=== PATIENT | male | born 1990 | race Caucasian/White ===

== ENCOUNTER 2024-03-20 13:37 | Emergency (ER) | payer OTHER, BC, SELFPAY ==
--- NOTE | ~2024-03-20 | XR_ITS ---
EXAMINATION: XR lumbar spine 2-3V DATE: 03/20/2024 15:14 INDICATION: Low back injury. Low back pain. TECHNIQUE: 3 views of lumbar spine including standing views were obtained. COMPARISON: None. FINDINGS: There is 4 degrees dextrocurvature of lumbar spine. Vertebral body heights are normal. Ther e is mildly decreased disc height at L4-L5. There is multilevel mild facet joint osteoarthritis. IMPRESSION: 1. Mild lumbar spondylosis. Reviewed, dictated and finalized at location A. IMPRESSION: 1. Mild lumbar spondylosis.
[2024-03-20 14:13] VITALS: BP 140/77; PULSE 74; RESP 16; TEMP 36.6; O2SAT 100
--- NOTE | 2024-03-20 14:56 | ED.BACK ---
HPI - Back Pain/Injury General Chief Complaint: Back Pain/Injury Stated Complaint: back injury/work related Time Seen by Provider: 03/20/24 14:35 Source: patient, RN notes reviewed and old records reviewed Mode of arrival: ambulatory Limitations: no limitations History of Present Illness HPI Narrative: 34 year old male presents to [facility] care with lower lumbar back pain. 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 Patient reports that he leaned to left to try to stabilize pallets and felt sharp sudden pain to his lower back. Patient reports that pain across lower back does not radiate down legs or into his buttocks. Patient states that pain is 10/10 at times. He has been applying ice to his back and he has been taking Tylenol. Patient reports that pain increases when sitting to standing and with some movements.. MD elicited complaint: back pain and back injury (across lumbar back) Pertinent past history: other (injury at work yesterday 1030) Onset (ago): day(s) (yesterday at 1030) Pain scale (0-10): 7 Location: lumbar spine Radiation: none Exacerbating factors: other (sitting to standing and with some movements) Treatments prior to arrival: cold therapy and acetaminophen Work related injury: Yes Related Data Allergies Allergy/AdvReac Type Severity Reaction Status Date / Time No Known Allergies Allergy Mild Verified 03/20/24 14:30 Review of Systems Review of Systems: CONSTITUTIONAL: Denies fever, chills, or sweats. EYES: Denies visual changes, redness, or discharge. ENT: Denies rhinorrhea, congestion, sore throat, or otalgia. CARDIOVASCULAR: Denies chest pain, palpitations, or edema. RESPIRATORY: Denies cough or dyspnea. GASTROINTESTINAL: Denies abdominal pain, nausea, vomiting, or diarrhea. GENITOURINARY: Denies dysuria or hematuria. SKIN: Denies rash or itching. MUSCULOSKELETAL: Reports lower back pain, or myalgia.no radiation of pain to buttocks or to legs. NEUROLOGIC: Denies headache, numbness, or weakness. PSYCHIATRIC: Denies anxiety or depression. All systems reviewed & are unremarkable except as noted in HPI and below PMFSH Surgical History Surgical History (Updated 03/22/24 @ 11:34 by Ebony Mcclain NP) History of tonsillectomy and adenoidectomy Social History Social History (Updated 03/22/24 @ 11:33 by Ebony Mcclain NP) Smoking status: Current every day smoker Tobacco type: e-cigarettes/vaping Alcohol intake: current Alcohol use details: social Substance use type: does not use Living arrangements: with family Gender identity (if verbalized by the patient): Male Comments At time of signature, agree with nursing past medical, surgical, social and family history. There is no relevant family history pertinent to the presenting complaint Exam Narrative: GENERAL: Well-appearing, well-nourished, and in some acute distress. HEAD: Normocephalic, atraumatic EYES: PERRLA and EOMI. ENT: Nares clear, no rhinorrhea or epistaxis. Mucous membranes moist. NECK: Supple. no lymphadenopathy CHEST: Clear to auscultation. No respiratory distress. SAO2 100% on room air HEART: Regular rate and rhythm. No murmur heard. Normal peripheral pulses. ABDOMEN: Soft, nontender, nondistended, normal active bowel sounds. EXTREMITIES: Normal range of motion. No edema. Pain across lumbar back region with no radiation of pain to buttocks or to legs, denies any tingling or numbness to legs, denies any difficulty passing urine or stools, denies any saddle paraesthesia. Increased pain with moving from sitting to standing, moving side to side and bending. Noted tightness and spasms of muscles lower back. SKIN: Warm, dry, no rash. NEURO: No focal deficits. Alert and oriented x3. Course Course Emergency Course: Patient is aware of diagnosis, understands and agrees to treatment plan.? Anticipatory guidance given.?
== END 2024-03-20 15:52 | disposition home or self-care (01) ==
PROVIDERS: Emergency Provider Registered Nurse
DX: M54.50 Low back pain, unspecified (principal); F17.290 Nicotine dependence, other tobacco product, uncomplicated
CPT/HCPCS: 72100; 99203; G0463

== ENCOUNTER 2024-06-23 14:31 | Emergency (ER) | payer BC, SELFPAY ==
[2024-06-23 14:54] VITALS: BP 165/98; PULSE 79; RESP 16; TEMP 36.3; O2SAT 100
--- NOTE | 2024-06-23 15:01 | ED.EAR ---
HPI - Ear Problem General Chief complaint: Ear Stated complaint: Ear Pain Time Seen by Provider: 06/23/24 14:57 Source: patient and RN notes reviewed Mode of arrival: ambulatory Limitations: no limitations History of Present Illness HPI Narrative: Patient presents today complaining of right ear pain since this morning and mild sore throat since last night. Reports he has had a rupture in the right ear twice and wants to make sure he does not have an infection or rupture at this time. Denies cough, headache, fever, or recent illness. Currently rates his pain 8/10 and states the pain is intermittent. He has tried Tylenol and ibuprofen without relief. Related Data Home Medications ?Medication ?Instructions ?Recorded ?Confirmed ?Last Taken ?Type No Home Medications 06/23/24 06/23/24 Unknown History Allergies Allergy/AdvReac Type Severity Reaction Status Date / Time No Known Allergies Allergy Mild Verified 03/20/24 14:30 Review of Systems Review of Systems: CONSTITUTIONAL: Denies body aches, fever, chills, or sweats. EYES: Denies visual changes, redness, or discharge. ENT: Denies rhinorrhea, congestion. + right ear pain, sore throat CARDIOVASCULAR: Denies chest pain, palpitations, or edema. RESPIRATORY: Denies cough or dyspnea. GASTROINTESTINAL: Denies abdominal pain, nausea, vomiting, or diarrhea. GENITOURINARY: Denies dysuria or hematuria. SKIN: Denies rash, itching, or wounds. MUSCULOSKELETAL: Denies back pain, joint pain, or myalgia. NEUROLOGIC: Denies headache, numbness, tingling, or weakness. PSYCH: Denies depression or anxiety. [facility] Surgical History Surgical History History of tonsillectomy and adenoidectomy Social History Social History Smoking status: Current every day smoker Tobacco type: e-cigarettes/vaping Alcohol intake: current Alcohol use details: social Substance use type: does not use Living arrangements: with family Gender identity (if verbalized by the patient): Male Comments At time of signature, I have reviewed and agree with nursing past medical, surgical, social and family history unless otherwise noted. Please see nursing chart for further information. There is no relevant family history pertinent to the presenting complaint Exam Narrative: GENERAL: Well-appearing, well-nourished, and in no acute distress. HEAD: Normocephalic, atraumatic. EYES: EOMI. No redness or drainage. Conjunctivae normal. ENT: Mucous membranes pink and moist. Nares clear. No rhinorrhea. TMs normal bilaterally. Throat mildly erythematous without edema exudate. Uvula midline. NECK: Normal AROM. Supple. No lymphadenopathy. CHEST: No respiratory distress. EXTREMITIES: Normal range of motion. No edema. SKIN: Warm, dry, no rash. Capillary refill normal. Normal skin turgor. NEURO: No focal deficits. Alert and oriented x3. Gait steady. PSYCH: Normal affect. No signs of depression or anxiety. Course Course Level of Care: Express Care Visit Vital Signs Vital signs: Vital Signs Temperature 97.4 F L 06/23/24 14:54 Pulse Rate 79 06/23/24 14:54 Respiratory Rate 16 06/23/24 14:54 Blood Pressure 165/98 H 06/23/24 14:54 Pulse Oximetry 100 06/23/24 14:54 Temperature 97.4 F L 06/23/24 14:54 Pulse Rate 79 06/23/24 14:54 Respiratory Rate 16 06/23/24 14:54 Blood Pressure 165/98 H 06/23/24 14:54 Pulse Oximetry 100 06/23/24 14:54 Review Medical Decision Making MDM Narrative Medical decision making narrative: Rapid strep negative. Culture pending. Symptoms likely viral in etiology. Discussed [id number] medication use and duration of illness. No prescription medications indicated at this time. Anticipatory guidance given. Differential Diagnosis Differential Diagnosis: Pharyngitis, strep throat, otitis media, otitis externa, ruptured TM, serous otitis Vital Signs Vital Signs: Vital Signs Temperature 97.4 F L 06/23/24 14:54 Pulse Rate 79 06/23/24 14:54 Respiratory Rate 16 06/23/24 14:54 Blood Pressure 165/98 H 06/23/24 14:54 Pulse Oximetry 100 06/23/24 14:54 Temperature 97.4 F L 06/23/24 14:54 Pulse Rate 79 06/23/24 14:54 Respiratory Rate 16 06/23/24 14:54 Blood Pressure 165/98 H 06/23/24 14:54 Pulse Oximetry 100 06/23/24 14:54 Lab Data Lab results reviewed: Yes I reviewed the patient's lab results. Lab results narrative: Rapid strep negative Critical Care Time Critical Care Time Critical Care Time: No Discharge Plan Discharge Clinical Impression: Pharyngitis, Acute pain of right ear Patient Disposition: Home, Self-Care Condition: Stable Instructions: Pharyngitis (ED) Additional Instructions: Your rapid strep swab was negative today at [facility]. You will be notified in a few days if the culture comes back positive for strep, and appropriate antibiotics will be called in for you at that time. Your sore throat and ear symptoms are likely due to a viral illness, which is not treated with antibiotics. Viral symptoms can be present for up to 7-10 days. Take Tylenol or ibuprofen for fever or pain. You may also consider some Sudafed or Flonase. Rest and stay hydrated. Follow up with your PCP in 7 days if symptoms are not improving. Go to the ER immediately if you have any difficulty breathing or swallowing. Your blood pressure was elevated above 120/80 today at Urgent Care. This puts you above the threshold for follow up. Please schedule a followup visit with your personal physician as soon as possible, for further evaluation and treatment. Even blood pressure exceeding 120/80 may indicate pre-hypertension. Patient Language: Sudanese Prescriptions: No Action No Home Medications Follow-up/Referrals: PHYSICIAN,SUPERINTENDENT NONSELLING [Primary Care Provider] - Time of Disposition: 15:18
[2024-06-23 15:15] LABS: EDSTREPNEGPOS1 Negative (Negative)
== END 2024-06-23 15:22 | disposition home or self-care (01) ==
PROVIDERS: Emergency Provider Nurse Practitioner
DX: J02.9 Acute pharyngitis, unspecified (principal); H92.01 Otalgia, right ear; F17.290 Nicotine dependence, other tobacco product, uncomplicated
CPT/HCPCS: 87081; 87880; 99213; G0463

== ENCOUNTER 2025-02-25 19:06 | Emergency (ER) | payer OTHER, SELFPAY ==
[2025-02-25 19:23] VITALS: BP 158/94; PULSE 80; RESP 16; TEMP 35.9; O2SAT 100
[2025-02-25 19:28] LABS: EDSTREPNEGPOS1 Positive (Negative)
--- NOTE | 2025-02-25 19:48 | ED_ITS ---
HPI - General Adult General Chief complaint: Upper Respiratory Infection Stated complaint: Swollen Lymph Nodes Source: patient Mode of arrival: ambulatory Limitations: no limitations History of Present Illness HPI narrative: Patient presents for evaluation of cervical lymphadenopathy. Symptom onset yesterday. He has experienced hot flashes, nausea and generalized body aches. No chills, vomiting, cough, shortness of breath. No specific sick contacts to his knowledge. He does vape. He has not taken any medication for his symptoms. Related Data Allergies Allergy/AdvReac Type Severity Reaction Status Date / Time No Known Allergies Allergy Mild Verified 02/25/25 19:25 Review of Systems Review of Systems: CONSTITUTIONAL: reports hot flashes. Denies chills, or sweats. EYES: Denies visual changes, redness, or discharge. ENT: reports cervical lymphadenopathy. Denies rhinorrhea, congestion, sore throat, or otalgia. CARDIOVASCULAR: Denies chest pain, palpitations, or edema. RESPIRATORY: Denies cough or dyspnea. GASTROINTESTINAL: Denies abdominal pain, nausea, vomiting, or diarrhea. GENITOURINARY: Denies dysuria or hematuria. SKIN: Denies rash or itching. MUSCULOSKELETAL: Reports generalized body aches NEUROLOGIC: Denies headache, numbness, dizziness, or weakness. PSYCHIATRIC: Denies anxiety or depression. [facility] Past Medical History Medical History No pertinent past medical history Surgical History Surgical History History of tonsillectomy and adenoidectomy Family History Family History Mother Family history non-contributory Social History Social History Smoking status: Current every day smoker Tobacco type: e-cigarettes/vaping Alcohol intake: current Alcohol use details: social Substance use type: does not use Living arrangements: with family Gender identity (if verbalized by the patient): Male Exam Narrative: GENERAL: Well-appearing, well-nourished, and in no acute distress. HEAD: Normocephalic, atraumatic. EYES: PERRLA and EOMI. ENT: Nares clear, no rhinorrhea or epistaxis. Mucous membranes moist. tonsils surgically absent. Uvula is midline. No exudate. Bilateral TMs pearly evangelista nonbulging NECK: Supple. No adenopathy or masses. No carotid bruits or JVD CHEST: Clear to auscultation. No respiratory distress. No wheezes rales or rhonchi HEART: Regular rate and rhythm. No murmur heard. Normal peripheral pulses. ABDOMEN: Soft, nontender, nondistended, normal active bowel sounds. EXTREMITIES: Normal range of motion. No edema. SKIN: Warm, dry, no rash. NEURO: No focal deficits. Alert and oriented x3. PSYCH: Normal mood and affect. Course Course Emergency Course: This is a 35-year-old male who presented for evaluation of cervical lymphadenopathy. Rapid strep positive. Will treat with amoxicillin. Increase hydration. [id number] agents for symptom management. Follow up with primary provider. Go to the ER for worsening symptoms. Patient in agreement with plan of care. Level of Care: Express Care Visit Vital Signs Vital signs: Vital Signs Temperature 35.9 C L 02/25/25 19:23 Pulse Rate 80 02/25/25 19:23 Respiratory Rate 16 02/25/25 19:23 Blood Pressure 158/94 H 02/25/25 19:23 Pulse Oximetry 100 02/25/25 19:23 Temperature 35.9 C L 02/25/25 19:23 Pulse Rate 80 02/25/25 19:23 Respiratory Rate 16 02/25/25 19:23 Blood Pressure 158/94 H 02/25/25 19:23 Pulse Oximetry 100 02/25/25 19:23 Medical Decision Making Vital Signs Vital Signs: Vital Signs Temperature 35.9 C L 02/25/25 19:23 Pulse Rate 80 02/25/25 19:23 Respiratory Rate 16 02/25/25 19:23 Blood Pressure 158/94 H 02/25/25 19:23 Pulse Oximetry 100 02/25/25 19:23 Temperature 35.9 C L 02/25/25 19:23 Pulse Rate 80 02/25/25 19:23 Respiratory Rate 16 02/25/25 19:23 Blood Pressure 158/94 H 02/25/25 19:23 Pulse Oximetry 100 02/25/25 19:23 Lab Data Labs: Lab Results 02/25/25 Range/Units 19:27 POC Grp A Strep Screen Positive (Negative) Discharge Plan Discharge Clinical Impression: Strep throat Patient Disposition: Home Condition: Stable Instructions: Antibiotic Form, Strep Throat (ED) Patient Language: Maori Prescriptions: New amoxicillin 500 mg tablet 500 mg PO Q12H Qty: 20 0RF Follow-up/Referrals: Juni Montejo MD [Physician, Family Practice] Stand Alone Forms: Work/School Release IP Time of Disposition: 19:47
== END 2025-02-25 19:52 | disposition home or self-care (01) ==
PROVIDERS: Emergency Provider Nurse Practitioner
DX: J02.0 Streptococcal pharyngitis (principal); F17.290 Nicotine dependence, other tobacco product, uncomplicated
CPT/HCPCS: 87880; 99213; G0463